=== PATIENT | female | born 2000 | race Caucasian/White ===

== ENCOUNTER 2021-01-03 08:41 | Emergency (ER) | payer MEDICAID, SELFPAY ==
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
[2021-01-03] MEDS: Balanced Salt Solution 15 ML BTL OP (09:00)
[2021-01-03 09:20] VITALS: BP 138/90; PULSE 81; RESP 16; TEMP 36.7; O2SAT 100
[2021-01-03] MEDS: Acetaminophen 500 MG TAB 1000 MG PO (09:31)
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
[2021-01-03 10:40] VITALS: BP 130/79; PULSE 95; RESP 16; TEMP 36.7; O2SAT 100
--- NOTE | 2021-01-03 11:03 | NUR.NOTE ---
bandaid applied to R ankle after cleaning.Nursing Note:
== END 2021-01-03 10:41 | disposition home or self-care (01) ==
PROVIDERS: Emergency Provider Emergency Medicine
DX: S00.211A Abrasion of right eyelid and periocular area, initial encounter (principal); S90.511A Abrasion, right ankle, initial encounter; R51.9 Headache, unspecified; S00.83XA Contusion of other part of head, initial encounter; V49.9XXA Car occupant (driver) (passenger) injured in unspecified traffic accident, initial encounter
CPT/HCPCS: 81025; 99284; 70450; 70486; 71046; 72125; 73140

== ENCOUNTER 2021-04-01 03:31 | Emergency (ER) | payer MEDICAID, SELFPAY ==
[2021-04-01 03:37] VITALS: BP 101/67; PULSE 97; RESP 16; TEMP 37
--- NOTE | 2021-04-01 03:41 | W.ED.GENAD ---
Discharge Plan Disposition Patient Disposition: HOME Condition: Stable Discharge Details Clinical Impression: Laceration of right hand Primary Care Provider: Lynette,Local ED Provider: Jaziel Lockwood Home Meds and New Rx's Prescriptions: Continued Nexplanon 68 mg Implant SUBDERMAL RF: 0 Discharge Instructions Instructions: Laceration (ED) Additional Instructions: return in 7-10 days for evaluation of possible suture removal if you have spreading redness, yellow/white discharge or severe worsening pain return to the emergency department Medical Decision Making 20 yo female who denies chronic medical problems comes in with right hand laceration. She was opening up a tin can and her right hand got cut on the part of the can that was open, no broken pieces or potential foreign bodies. She did not fall or have other injuries. She has a 2cm laceration on the plamar surface of the right hand on the thenar eminence. It is superficial, has full range of motion of the thumb and normal sensation, bleeding controlled prior to arrival. No findings to suggest tendon injury or foreign body on exam. Will requires sutures, will place lidocaine and then place suture. Woud is superficial so do not feel xray indicated as fracture unlikely wound cleaned extensively and 3 5-0 sutures placed without incident and she tolerated well. Advised to return in 7-10 days for eval for suture removal and sooner if signs of infection Differential Diagnosis Differential Diagnosis: laceration, abrasion HPI General Mode of arrival: ambulatory. Date/Time Provider Initiated Documentation: 04/01/21 03:32. Limitations to Documentation: no limitations. Information obtained by: patient. History of Present Illness 20 year old F presents to the emergency department with the chief complaint of right hand laceration, described as mild, Quality is described as aching, and is localized to the right and upper extremity. Patient reports no radiation. Patient started experiencing this hour(s) (1) and it has been constant. No relieving factors improve symptom(s), No exacerbating factors reported . Patient notes no other symptoms.. Related Data Home Medications Medication Instructions Recorded Confirmed Nexplanon SUBDERMAL 01/03/21 Allergies Allergy/AdvReac Type Severity Reaction Status Date / Time amoxicillin [From Augmentin] Allergy Unverified 04/01/21 03:42 clavulanic acid Allergy Unverified 04/01/21 03:42 [From Augmentin] Penicillins Allergy Unverified 10/25/21 03:42 General IMANI: 2 Review of Systems All systems reviewed & are unremarkable except as noted in HPI and below Constitutional Constitutional: Denies chills, Denies fever(s) and Denies weakness Cardiovascular Cardiovascular: Denies chest pain and Denies dyspnea Respiratory Respiratory: Denies cough and Denies dyspnea Gastrointestinal Gastrointestinal: Denies abdominal pain, Denies nausea and Denies vomiting Neurologic Neurologic: Denies weakness [facility] Social History Smoking/Tobacco Use Status: Current every day Tobacco Type: cigarettes Smoking risk assessment performed?: Yes Alcohol Intake: current Alcohol Intake frequency: a few times a month Alcohol type: beer and wine Drug use: Daily Substance use type: marijuana Do you feel safe at home: Yes Do you feel safe in your relationship?: Yes Exam Const General: no acute distress Orientation: alert HENMT Head: normal to inspection Ears: external ears normal General nose exam: external nose normal Mouth: moist mucous membranes Eyes General: appearance normal, both eyes and all related structures Neck Neck: normal visual inspection Resp Effort & Inspection: normal respiratory effort and able to speak in complete sentences Cardio Rate: regular rate Skin General skin exam: no rashes or lesions noted Neuro General: patient alert and patient oriented x3 Extrem General: full ROM and capillary refill normal Psych Mental Status: mental status grossly normal Procedures Laceration Laceration 1: Site: hand Side (If applicable): right Size (cm): 2 Description: linear Depth: simple, single layer Local Anesthetic: Lidocaine 1% and with Epi Amount of anesthesia used (mL): 4 Pre-repair: wound explored and irrigated extensively Skin layer closed with: nylon Size (cm): 5-0 Number of sutures: 3
[2021-04-01] MEDS: Tetanus & Diphtheria Tox,ADULT 0.5 ML VIAL IM (03:51)
== END 2021-04-01 04:07 | disposition home or self-care (01) ==
PROVIDERS: Emergency Provider Emergency Medicine
DX: S61.411A Laceration without foreign body of right hand, initial encounter (principal); W26.8XXA Contact with other sharp object(s), not elsewhere classified, initial encounter
CPT/HCPCS: 12001; 90471

== ENCOUNTER 2021-07-08 12:53 | Emergency (ER) | payer MEDICAID, SELFPAY ==
[2021-07-08 13:18] VITALS: BP 120/69; PULSE 91; RESP 16; TEMP 37; O2SAT 100
[2021-07-08 13:43] LABS: Bilirubin Negative (Negative); Blood Small (Negative); Clarity Clear (Clear); Glucose Negative (Negative); Ketones Negative (Negative); Leukocyte Esterase Negative (Negative); Nitrite Negative (Negative); Specific Gravity 1.015 (1.005-1.025); pH 8.5 (5-8)
[2021-07-08 14:04] LABS: Bacteria Rare HPF (Negative); C & S Indicated? No; Casts Negative LPF (Negative); Crystals Negative HPF (Negative); Epithelial Cells Moderate HPF (Negative); Mucus Trace (Negative); RBC 0-2 HPF (0-2); WBC Negative HPF (0-5)
--- NOTE | 2021-07-08 14:11 | W.ED.GENAD ---
Discharge Plan Disposition Patient Disposition: HOME Condition: Stable Discharge Details Clinical Impression: Abnormal vaginal bleeding, Pelvic pain, Thrombocytopenia Primary Care Provider: Lynette,Local ED Provider: Christine Acharya Home Meds and New Rx's Prescriptions: New norgestimate-ethinyl estradiol [Sprintec (28)] 0.25-35 mg-mcg tablet 1 tab PO DAILY Qty: 28 RF: 0 Continued Nexplanon 68 mg Implant SUBDERMAL RF: 0 No Action metronidazole 500 mg tablet 500 mg PO Q12H Qty: 14 RF: 0 Discharge Instructions Instructions: Abnormal (Dysfunctional) Uterine Bleeding (ED), Thrombocytopenia (ED) Referrals: Roya Davis DO [OSTEOPATHIC DOCTOR] - Discharge Data Discharge Date/Time-TO BE ENTERED AT DEPARTURE: 07/08/21 15:19 Medical Decision Making Mikaela Crooks is a 20-year-old woman without reported history of medical problems presenting to emergency department abnormal vaginal bleeding for the past 2 months. On exam patient is well and nontoxic-appearing. Vaginal exam normal except for trace/small amount of blood in the vaginal vault. Benign abdominal exam. Exam/history at this time is not consistent with PID, acute emergent ovarian pathology. Concern for anemia, abnormal vaginal bleeding. Cultures and vaginal path sent. I discussed patient with Dr. Davis of gynecology, who will have patient seen as an outpatient in follow-up for abnormal vaginal bleeding, recommends outpatient treatment with Sprintec OCT. Labs reviewed, patient with mild thrombocytopenia with platelets 114, exam/history is not consistent with ITP, TTP. Patient elected not to wait for Vas-Cath. Plan for outpatient follow-up with PCP and gynecology. I had a discussion with Patient regarding return to emergency department precautions, home care, and importance of outpatient follow-up. Pt verbalizes understanding of the plan and is amenable. Patient discharged to home with clear plan for outpatient follow-up. All questions were answered. Disposition decision was made weighing the risks and benefits of hospitalization versus outpatient treatment, the risk for further decompensation, and the patient's wishes. 07/10/2021: Patient was discharged 07/08/2021 with?path pending. On 07/10/[address] Ash of gynecology regarding patient's positive Gardnerella result, who states that she will follow up with patient regarding BV treatment and outpatient gynecology follow-up this week. Medical Records Medical records reviewed: Yes I reviewed the patient's medical records. Lab Data Lab results reviewed: Yes I reviewed the patient's lab results. Labs: 07/08/21 14:19 Vaginal Vaginitis Screen - Final Laboratory Tests Range/Units 07/08/21 07/08/21 07/08/21 13:10 14:19 14:35 WBC (4.4-10.8) 10^3/uL 2.81 L RBC (3.93-5.22) 10^6/uL 3.51 L Hgb (11.2-15.7) g/dL 11.4 Hct (36.0-46.0) % 33.6 L MCV (80-95) fL 95.7 H MCH (27.0-33.0) pg 32.5 MCHC (32.0-36.0) % 33.9 RDW (11.7-14.6) % 11.9 Plt Count (130-400) 10^3/uL 114 L MPV (8.0-11.0) fL 10.3 Immature Gran % See Differential Neutrophils % 40.0 Band Neutrophils % 5 Lymphocytes % 34.0 Atypical Lymphs % 5 Monocytes % 14.0 Eosinophils % 2.0 Basophils % 0.0 Nucleated RBC % % 0 Absolute Neutrophils (1.2-6.7) 10^3/uL 1.26 Absolute Lymphocytes (1.2-3.4) 10^3/uL 1.10 L Absolute Monocytes (0.1-0.8) 10^3/uL 0.39 Absolute Eosinophils (0.0-0.7) 10^3/uL 0.06 Absolute Basophils (0.0-0.2) 10^3/uL 0.00 RBC Morphology Normal Urine Color (Yellow) Yellow Urine Clarity (Clear) Clear Urine pH (5-8) 8.5 H Ur Specific Wood (1.005-1.025) 1.015 Urine Protein (Negative) mg/dL 30 H Urine Ketones (Negative) mg/dL Negative Urine Blood (Negative) Small H Urine Nitrite (Negative) Negative Urine Bilirubin (Negative) Negative Urine Urobilinogen (Up TO 0.2) EU/dL 2.0 H Ur Leukocyte Esterase (Negative) Negative Urine RBC (0-2) HPF 0-2 Urine WBC (0-5) HPF Negative Ur Epithelial Cells (Negative) HPF Moderate Urine Crystals (Negative) HPF Negative Urine Bacteria (Negative) HPF Rare Urine Casts (Negative) LPF Negative Urine Mucus (Negative) Trace Ur Culture Indicated? No Urine Glucose (Negative) mg/dL Negative Chlamydia DNA Probe (Negative) Negative Chlamydia/GC DNA Source Not Applicable N.gonorrhoeae DNA Probe (Negative) Negative HPI General Mode of arrival: ambulatory. Date/Time Provider Initiated Documentation: 07/08/21 13:03. Limitations to Documentation: no limitations. Information obtained by: patient, RN notes reviewed and old records reviewed. HPI Narrative: Mikaela Crooks is a 20-year-old woman without reported history of medical problems presenting to emergency department with abnormal vaginal bleeding. Patient reports that she has been on Exelon for 5 years, had 1 implant for 3 years that was replaced, current implant has been in place for 2 years. Patient reports that she has never had vaginal bleeding since being on Nexplanon. Patient reports that 2 months ago she developed vaginal bleeding. She reports minimal/no clot, bleeding is as heavy as a normal., Has been intermittent but occurring fairly persistently over the past 2 months. Patient reports that bleeding today has been light. She reports that she has had some pelvic cramping at times over the past few months, occurs when bleeding is heavier, no pelvic pain without bleeding. Patient reports that she has no pelvic pain or any other pain at this time. She denies any other symptoms. No fever, cough, shortness of breath, vomiting, diarrhea, melena, bloody stool, rash, swelling, bleeding gums, vaginal discharge. Patient reports that she has been monogamous with 1 male sexual partner for the past 3 months. Related Data Home Medications Medication Instructions Recorded Confirmed Nexplanon SUBDERMAL 01/03/21 norgestimate-ethinyl estradiol 1 tab PO DAILY #28 tab 07/08/21 [Sprintec (28)] metronidazole 500 mg tablet 500 mg PO Q12H #14 tab 07/10/21 Previous Rx's Medication Instructions Recorded norgestimate-ethinyl estradiol 1 tab PO DAILY #28 tab 07/08/21 [Sprintec (28)] metronidazole 500 mg tablet 500 mg PO Q12H #14 tab 07/10/21 Allergies Allergy/AdvReac Type Severity Reaction Status Date / Time amoxicillin [From Augmentin] Allergy Unverified 01/31/22 13:23 clavulanic acid Allergy Unverified 07/08/21 13:23 [From Augmentin] Penicillins Allergy Unverified 07/08/21 13:23 General Stated Complaint: [employer]LY [employer] IMANI: 3 Review of Systems Narrative: Constitutional: denies fevers Eyes: denies eye pain ENT: denies ear pain, dental pain, sore throat Cardiovascular: denies chest pain, edema Respiratory: denies SOB, cough GI: denies abdominal pain, vomiting, diarrhea : denies flank pain, dysuria, vaginal discharge, reports abnormal vaginal bleeding, intermittent pelvic pain MSK: denies back pain, neck pain, arthralgias, myalgias Skin: denies rash Neuro: denies headaches, numbness, weakness PFSH All Active Problems (Updated 07/10/21 @ 10:40 by Kacy Smyth MD) Microcytic anemia (Acute) 07/08/21. After 2mo of bleeding with nexplanon in place. Bacterial vaginosis (Acute) 07/08/21. Rx with Metronidazole by [facility] 07/10/21. Abrasion of eyelid, right (Acute) Abrasion of ankle, right (Acute) Laceration of right hand (Acute) Abnormal vaginal bleeding (Acute) 2019. Nexplanon inserted. Seen in ED 06/2021 with 2mo of bleeding: anemia. Pelvic pain (Acute) Thrombocytopenia (Chronic) Incidental finding on CBC during ED visit for AUB. Needs PCP in [facility] to eval further. Social History Smoking/Tobacco Use Status: Current every day Tobacco Type: cigarettes Smoking risk assessment performed?: Yes Alcohol Intake: current Alcohol Intake frequency: a few times a week Alcohol type: beer and wine Drug use: Daily Substance use type: marijuana Do you feel safe at home: Yes Do you feel safe in your relationship?: Yes Exam Narrative Exam Narrative: Constitutional: well and [id number], pleasant, conversing normally HENT: head atraumatic/normocephalic/normal inspection, mucous membranes moist Eyes: conjunctiva normal, sclera normal, pupils 3mm b/l Neck: no stridor, normal ROM, trachea midline Chest: normal inspection Resp: normal work of breathing, LCTAB Cardio: normal rate, normal rhythm, no murmur appreciated GI: abdomen soft, non-tender, non-distended : External genitalia normal, speculum exam shows trace to small amount of blood in the vaginal vault, normal-appearing cervix without discharge, bimanual exam shows no CMT, nontender uterus and adnexa bilaterally, no uterine or adnexal fullness bilaterally Back: normal inspection, no rash Skin: warm, dry, normal color, no rash Neuro: alert, not altered, grossly non-focal, normal tone Ext: no edema Psych: normal mood, normal affect, normal behavior Course Vital Signs Vital signs: Vital Signs Temperature 37 C 07/08/21 13:18 Pulse 91 H 07/08/21 13:18 Respiratory Rate 16 07/08/21 13:18 Blood Pressure 120/69 07/08/21 13:18 Pulse Oximetry 100 07/08/21 13:18 Temperature 37 C 07/08/21 13:18 Temperature Source Skin 07/08/21 13:18 Pulse 91 H 07/08/21 13:18 Respiratory Rate 16 07/08/21 13:18 Respiratory Effort 07/08/21 13:18 Blood Pressure 120/69 07/08/21 13:18 Blood Pressure Position Sitting 07/08/21 13:18 Pulse Oximetry 100 07/08/21 13:18 Oxygen Delivery Method Room Air 07/08/21 13:18 Oxygen Flow Rate 0 07/08/21 13:18 Pain Level 2 07/08/21 13:47 Lab/Test Results Lab/Test Results: Laboratory Tests Range/Units 07/08/21 13:10 Urine Color (Yellow) Yellow Urine Clarity (Clear) Clear Urine pH (5-8) 8.5 H Ur Specific Wood (1.005-1.025) 1.015 Urine Protein (Negative) mg/dL 30 H Urine Ketones (Negative) mg/dL Negative Urine Blood (Negative) Small H Urine Nitrite (Negative) Negative Urine Bilirubin (Negative) Negative Urine Urobilinogen (Up TO 0.2) EU/dL 2.0 H Ur Leukocyte Esterase (Negative) Negative Urine RBC (0-2) HPF 0-2 Urine WBC (0-5) HPF Negative Ur Epithelial Cells (Negative) HPF Moderate Urine Crystals (Negative) HPF Negative Urine Bacteria (Negative) HPF Rare Urine Casts (Negative) LPF Negative Urine Mucus (Negative) Trace Ur Culture Indicated? No Urine Glucose (Negative) mg/dL Negative POC- Test(urine) Negative
[2021-07-08 14:47] LABS: HCT 33.6 % (36.0-46.0); HGB 11.4 g/dL (11.2-15.7); MCH 32.5 pg (27.0-33.0); MCHC 33.9 % (32.0-36.0); MCV 95.7 fL (80-95); MPV 10.3 fL (8.0-11.0); Nucleated RBC 0 %; Platelet Count 114 10^3/uL (130-400); RBC 3.51 10^6/uL (3.93-5.22); RDW 11.9 % (11.7-14.6); RDW-SD 41.3 fL; WBC 2.81 10^3/uL (4.4-10.8)
[2021-07-08 14:56] LABS: Absolute Neutrophil Count 1.26 10^3/uL (1.2-6.7); Bands % 5
[2021-07-08 14:57] LABS: Absolute Eosinophil Count 0.06 10^3/uL (0.0-0.7); Absolute Monocyte Count 0.39 10^3/uL (0.1-0.8); Atypical Lymphocytes % 5; Diff Comment Manual Differential; RBC Morphology Normal
--- NOTE | 2021-07-08 15:19 | NUR.NOTE ---
Referral given to Care Management to establish care/thrombocytopenia with PCP in 1 to 2 weeks. Referral faxed to [facility] for normal vaginal bleeding for this week. Rubia Blum Nursing Note:
[2021-07-09 17:53] LABS: Chlamydia Result Negative (Negative); GC Result Negative (Negative)
== END 2021-07-08 15:19 | disposition home or self-care (01) ==
PROVIDERS: Emergency Provider Student in an Organized Health Care Education/Training Program
DX: N93.8 Other specified abnormal uterine and vaginal bleeding (principal); R10.2 Pelvic and perineal pain; D69.6 Thrombocytopenia, unspecified; N76.0 Acute vaginitis
CPT/HCPCS: 36415; 81025; 87491; 87591; 99284; 81003; 81015; 85025; 87480; 87510; 87660; 99283

== ENCOUNTER 2021-08-19 00:23 | Outpatient (CLI) | payer MEDICAID, SELFPAY ==
--- NOTE | 2021-08-19 07:45 | DI.US_ITS ---
Exam(s) US PELVIS TRANSVAGINAL EXAM: US PELVIS TRANSVAGINAL CLINICAL HISTORY: pelvic pain, L>R,R10.2 TECHNIQUE: Transabdominal and transvaginal imaging was performed using standard protocol. COMPARISON: No exams were available for comparison FINDINGS: KIDNEYS: Kidneys are symmetric in size. No evidence of renal calculi. No evidence of hydronephrosis. No renal mass or cyst identified. UTERUS: Anteverted. 7.2 x 3.3 x 3.5 cm. Endometrium: 3 millimeters with a small amount of fluid within the endometrial canal. No focal abnor mality. Myometrium: Unremarkable. Cervix: Unremarkable. OVARIES: Right: Cyst or mass: None. Left: Cyst or mass: None. DOPPLER: Color: Symmetric and uniform flow to both ovaries. No hyperemia. Duplex: Normal ovarian arterial waveforms visualized. CUL-DE-SAC: Free fluid: Small amount. IMPRESSION: 1. Normal-appearing uterus. Small amount of fluid within the endometrial stripe. 2. Unremarkable bilateral ovaries. DATA REPOSITORY:
== END 2021-08-19 00:43 ==
PROVIDERS: Visit Provider Nurse Practitioner Women's Health
DX: R10.2 Pelvic and perineal pain (principal)
CPT/HCPCS: 76830; 76856